=== PATIENT | female | born 1975 | race Caucasian/White ===

== ENCOUNTER 2017-08-07 18:34 | Emergency (ER) | payer OTHER ==
[~2017-08-07] VITALS: Ht 157.5 cm; Wt 70.8 kg
[2017-08-07] MEDS ORDERED: VISTARIL50 MG (19:14)
[2017-08-07] MEDS ORDERED: SUBOXONE 8 MG-1 EACH (19:14)
== END 2017-08-07 21:14 | disposition home or self-care (01) ==
LOC: ER 18:34
DX: B76.9 Hookworm disease, unspecified (principal)